=== PATIENT | male | born 1965 | race Caucasian/White ===

== ENCOUNTER 2017-12-22 17:51 | Observation (INO) | payer OTHER ==
[2017-12-22] MEDS ORDERED: Sodium Chloride 0.9% 1,000 ML IV STA (18:25)
--- NOTE | 2017-12-22 18:25 | ED PDOC ---
Syncope/Near Syncope/Dizziness Time Seen by Provider: 12/22/17 18:03 Chief Complaint (Nursing): Syncope Chief Complaint (Provider): Syncope History Per: Ream Cutter ([id number]) Additional Complaint(s): 52 yo male, no PMH, presents to ED for evaluation of a syncopal episode. Pt is from [place], here on a business trip until Jan 02. All information obtained from Pt and family via science interpreter [id number]. Pt and his family were going to dinner around 1730, upon sitting down at table Pt began to feel sweaty and passed out. Pt was caught by his , did not fall to floor, no head injury. Pt was unconscious for ~ 2 minutes and then regained consciousness upon laying down. Pt denies any chest pain or SOB. No abdominal pain, nausea or vomiting. Pt at this time appears to be pale; however, reports feeling well. Past Medical History Reviewed: Nursing Documentation, Vital Signs Vital Signs: Last Vital Signs Temp 98.1 F 12/22/17 17:59 Pulse 47 L 12/22/17 17:59 Resp 18 12/22/17 17:59 BP 142/76 12/22/17 17:59 Pulse Ox 100 12/22/17 17:59 - Medical History PMH: No Chronic Diseases - Surgical History Surgical History: No Surg Hx - Family History Family History: States: No Known Family Hx - Living Arrangements Living Arrangements: With Family - Social History Current smoker - smoking cessation education provided: No Alcohol: None Drugs: Denies - Home Medications Home Medications: Ambulatory Orders Medication Instructions Recorded Aspirin [Ecotrin] 81 mg PO DAILY 12/22/17 - Allergies Allergies/Adverse Reactions: Allergies Allergy/AdvReac Type Severity Reaction Status Date / Time No Known Allergies Allergy Verified 12/22/17 18:06 Review of Systems ROS Statement: Except As Marked, All Systems Reviewed And Found Negative Neurological: Positive for: Altered Mental Status Physical Exam - Reviewed Nursing Documentation Reviewed: Yes Vital Signs Reviewed: Yes - Physical Exam Appears: Positive for: Well, Non-toxic, No Acute Distress Head Exam: Positive for: ATRAUMATIC, NORMAL INSPECTION, NORMOCEPHALIC Skin: Positive for: Warm, Pallor Eye Exam: Positive for: EOMI, Normal appearance, PERRL ENT: Positive for: Normal ENT Inspection Neck: Positive for: Normal, Painless ROM Cardiovascular/Chest: Positive for: Regular Rate, Rhythm Respiratory: Positive for: CNT, Normal Breath Sounds Gastrointestinal/Abdominal: Positive for: Normal Exam, Soft Back: Positive for: Normal Inspection Extremity: Positive for: Normal ROM Neurologic/Psych: Positive for: Alert, Oriented - Laboratory Results Result Diagrams: 12/22/17 18:24 12/22/17 18:24 - ECG O2 Sat by Pulse Oximetry: 100 Medical Decision Making Medical Decision Making: Pt placed on cook 3 pastry: P: 42, BP: 132/72 upon initial exam by commercial lines underwriter Finger stick upon arrival: 128 EKG: SB at 49 bpm, no axis deviation or acute ST changes as read by ED MD IV access established and diagnostics ordered Hgb: 14.0 Hct: 41.6 ED MD, Dr. Connors, at bedside for eval as well. Pt remains calm and comfortable throughout stay, offers no complaints of CP or SOB Dr. Orlando covering medicine on-call. presented to see and evaluate Pt at bedside. Arrangements made for tele- admit Dr. Handley, cardio on-call, placed on consult. contacted by commercial lines underwriter and case discussed. P: 49 on re-eval, BP: 128/74 at 1999 Disposition - Clinical Impression Clinical Impression: Syncope, Bradycardia - Patient ED Disposition Is Patient to be Admitted: Yes - Disposition Disposition Time: 19:59 Condition: STABLE Forms: [facility] (Lao)
[2017-12-22 18:37] LABS: BASO % 0.6 % (0.0-2.0); EOS # 0.1 K/uL (0.0-0.7); EOS % 1.3 % (0.0-4.0); LYMPH # 2.9 K/uL (1.0-4.3); MEAN CELL VOLUME 97.6 fl (80.0-94.0); MEAN CORPUSCULAR HEMOGLOBIN 32.9 pg (27.0-31.0); MEAN CORPUSCULAR HGB CONC 33.7 g/dL (33.0-37.0); MEAN PLATELET VOLUME 9.3 fl (7.2-11.7); MONO # 0.4 K/uL (0.0-0.8); MONO % 5.6 % (0.0-10.0); NEUT % 53.5 % (50.0-75.0); NRBC % 0.1 % (0.0-0.0); RBC 4.26 Mil/uL (4.40-5.90); RED CELL DISTRIBUTION WIDTH 12.6 % (11.5-14.5); WHITE BLOOD COUNT 7.5 K/uL (4.8-10.8)
[2017-12-22 18:43] LABS: ALB/GLOB RATIO 1.3 (1.0-2.1); ALBUMIN 4.3 g/dL (3.5-5.0); CALCIUM 9.2 mg/dL (8.4-10.2); GFR NON-AFRICAN AMERICAN > 60; PARTIAL THROMBOPLASTIN TIME 33.6 Seconds (25.6-37.1); PROTHROMBIN TIME 11.3 Seconds (9.8-13.1)
[2017-12-22 19:17] LABS: ALT/SGPT 29 U/L (21-72); AST/SGOT 32 U/L (17-59); BLOOD UREA NITROGEN 18 mg/dl (9-20)
--- NOTE | 2017-12-22 20:49 | CP.PCM.HP ---
History of Present Illness - History of Present Illness History of Present Illness: CC: Syncope This is a 52 yo male with pmh of hypercholesterolemia, who presents to the ED today c/o a syncopal episode earlier today. The patient went to dinner at 1730, and when he sat down at the table the patient began feeling diaphoretic and lightheaded and syncopized in his chair. The patient was caught by his and did not fall or hit his head. The syncopal episode lasted for 2 minutes. There was no evidence of convulsions or post ictal phase to suggest a seizure. He denies any palpitations before or after the event. Of note the patient did have one syncopal episode recently in [place] and was worked up and found to have hypercholesterolemia but otherwise the workup there was negative. In the ED, the patient was noted to be in sinus bradycardia around [address] head was negative and EKG unremarkable other than sinus bradycardia. The patient is being admitted for further workup and monitoring due to syncope. PMH: Hypercholesterolemia PSH: None Social: Denies smoking, ETOH, or recreational drugs. Present on Admission - Present on Admission Any Indicators Present on Admission: No History of DVT/PE: No History of Uncontrolled Diabetes: No Review of Systems - Review of Systems Review of Systems: A 12 point review of systems was conducted and found to be negative other than in HPI. Past Patient History - Infectious Disease Hx of Infectious Diseases: None - Past Social History Smoking Status: Never Smoked Alcohol: None Drugs: Denies Home Situation {Lives}: With Family - PSYCHIATRIC Hx Substance Use: No - SURGICAL HISTORY Hx Surgeries: No - ANESTHESIA Hx Anesthesia: No Meds Allergies/Adverse Reactions: Allergies Allergy/AdvReac Type Severity Reaction Status Date / Time No Known Allergies Allergy Verified 12/22/17 18:06 Physical Exam - Additional Findings Additional findings: Physical exam: Constitutional- cooperative, awake, alert Head- NCAT, PERRL Eye- PERRL, EOMI ENT- normal exam, MMM. Neck- normal inspection, supple, no JVD Respiratory- CTAB, no wheezes rales rhonchi Cardiovascular- Bradycardia, regular rhythm, +S1, +S2 no MRG GI/Abdominal- normal bowel sounds, soft, no mass, no hsm Skin- warm, dry Extremities Exam- normal capillary refill, normal inspection Neurological Exam- alert, awake, oriented Psych- normal mood, normal affect Results - Vital Signs Recent Vital Signs: Last Vital Signs Temp 98.1 F 12/22/17 17:59 Pulse 47 L 12/22/17 17:59 Resp 18 12/22/17 17:59 BP 142/76 12/22/17 17:59 Pulse Ox 100 12/22/17 20:00 - Labs Result Diagrams: 12/22/17 18:24 12/22/17 18:24 Labs: Laboratory Results - last 24 hr 12/22/17 12/22/17 12/22/17 18:12 18:24 18:24 WBC 7.5 RBC 4.26 L Hgb 14.0 Hct 41.6 MCV 97.6 H MCH 32.9 H MCHC 33.7 RDW 12.6 Plt Count 109 L MPV 9.3 Neut % (Auto) 53.5 Lymph % (Auto) 39.0 [place] % (Auto) 5.6 Eos % (Auto) 1.3 Baso % (Auto) 0.6 Neut # (Auto) 4.0 Lymph # (Auto) 2.9 [place] # (Auto) 0.4 Eos # (Auto) 0.1 Baso # (Auto) 0.0 PT INR APTT Sodium 141 Potassium 3.8 Chloride 103 Carbon Dioxide 22 Anion Gap 20 BUN 18 Creatinine 0.7 L Est GFR ( Amer) > 60 Est GFR (Non-Af Amer) > 60 POC Glucose (mg/dL) 128 H Random Glucose 128 H Calcium 9.2 Total Bilirubin 2.0 H AST 32 ALT 29 Alkaline Phosphatase 57 Total Creatine Kinase 111 Troponin I < 0.0120 Total Protein 7.6 Albumin 4.3 Globulin 3.2 Albumin/Globulin Ratio 1.3 TSH 3rd Generation 12/22/17 12/22/17 18:24 18:37 WBC RBC Hgb Hct MCV MCH MCHC RDW Plt Count MPV Neut % (Auto) Lymph % (Auto) [place] % (Auto) Eos % (Auto) Baso % (Auto) Neut # (Auto) Lymph # (Auto) [place] # (Auto) Eos # (Auto) Baso # (Auto) PT 11.3 INR 1.0 APTT 33.6 Sodium Potassium Chloride Carbon Dioxide Anion Gap BUN Creatinine Est GFR ( Amer) Est GFR (Non-Af Amer) POC Glucose (mg/dL) Random Glucose Calcium Total Bilirubin AST ALT Alkaline Phosphatase Total Creatine Kinase Troponin I Total Protein Albumin Globulin Albumin/Globulin Ratio TSH 3rd Generation 2.83 Assessment & Plan - Assessment and Plan (Free Text) Plan: This is a 52 yo male with pmh of hypercholesterolemia, who presents to the ED today c/o a syncopal episode earlier today. The patient went to dinner at 1730, and when he sat down at the table the patient began feeling diaphoretic and lightheaded and syncopized in his chair. The patient was caught by his and did not fall or hit his head. The syncopal episode lasted for 2 minutes. There was no evidence of convulsions or post ictal phase to suggest a seizure. He denies any palpitations before or after the event. No cp or sob. In the ED, the patient was noted to be in sinus bradycardia around [address] head was negative and EKG unremarkable other than sinus bradycardia. The patient is being admitted for further workup and monitoring due to syncope. 1) Syncopal episode with bradycardia, vasovagal event vs arrhythmia - Telemetry/observation - Serial troponins - Cardiology consultation with Dr. Handley, called from ED. - Repeat EKG - Labs WNL - Check TSH, lipid profile 2) Hypercholesterolemia - Continue Aspirin 3) DVT prophylaxis - Lovenox
[2017-12-22 23:03] LABS: URINE BILIRUBIN NEGATIVE (NEGATIVE); URINE BLOOD NEGATIVE (NEGATIVE); URINE CLARITY CLEAR (Clear); URINE COLOR YELLOW (YELLOW); URINE GLUCOSE (UA) 150 mg/dL (Normal); URINE LEUKOCYTE ESTERASE NEG Leu/uL (Negative); URINE PROTEIN NEGATIVE (NEGATIVE); URINE UROBILINOGEN 0.2-1.0 mg/dL (0.2-1.0)
[2017-12-23 07:49] LABS: TROPONIN I 0.067 ng/mL (0.00-0.120)
--- NOTE | 2017-12-23 07:52 | RAD ---
Date of service: 12/22/2017 PROCEDURE: CHEST RADIOGRAPH, 1 VIEW HISTORY: med screening COMPARISON: None available. FINDINGS: LUNGS: Trace biapical fibrosis. No airspace disease identified bilaterally. PLEURA: No pneumothorax or pleural fluid seen. CARDIOVASCULAR: Normal. OSSEOUS STRUCTURES: No significant abnormalities. VISUALIZED UPPER ABDOMEN: Normal. OTHER FINDINGS: None. IMPRESSION: Trace biapical fibrosis. No acute cardiopulmonary findings appreciable.
[2017-12-23 07:54] LABS: T4 7.43 ug/dl (5.5-11.0)
[2017-12-23] MEDS ORDERED: Enoxaparin 40 mg Syringe SC SCH (09:00)
--- NOTE | 2017-12-23 09:51 | CT ---
Date of service: 12/22/2017 PROCEDURE: CT HEAD WITHOUT CONTRAST. HISTORY: syncope COMPARISON: None available. TECHNIQUE: Axial computed tomography images were obtained through the head/brain without intravenous contrast. Radiation dose: Total exam DLP = 778.16 mGy-cm. This CT exam was performed using one or more of the following dose reduction techniques: Automated exposure control, adjustment of the mA and/or kV according to patient size, and/or use of iterative reconstruction technique. FINDINGS: HEMORRHAGE: No intracranial hemorrhage. BRAIN: Normal crowder-white matter differentiation and density are appreciated throughout the cerebrum and cerebellum with the brainstem appearing unremarkable as well. There is no mass effect. There is no suspicious extra-axial fluid collection and the midline brain anatomy appears diffusely unremarkable. VENTRICLES: Unremarkable. No hydrocephalus. CALVARIUM: No destructive bony lesion or displaced fracture identified including through the skullbase. PARANASAL SINUSES: Right maxillary sinus disease identified. MASTOID AIR CELLS: Unremarkable as visualized. No inflammatory changes. OTHER FINDINGS: None. IMPRESSION: 1. No acute intracranial findings as discussed above. 2. Incidental right maxillary sinus disease noted. Concordant preliminary report from [facility], 12/22/2017.
[2017-12-23 14:23] VITALS: BP 125/77; PULSE 58; RESP 14; TEMP 98.9; O2SAT 97
--- NOTE | 2017-12-23 15:23 | CP.PCM.PN ---
<LauritaJody - Last Filed: 12/23/17 15:51> Subjective - Date & Time of Evaluation Date of Evaluation: 12/23/17 Time of Evaluation: 10:45 - Subjective Subjective: Patient seen and examined at bedside with Dr. Cook. He is resting comfortably and reports he feels okay. He states that he fainted yesterday and he reports that he thinks it is associated with his lack of sleep. He states that his resting heart rate is typically in the 50's. He reports that this episode has happened to him before in his country, [place]. He denies chest pain, shortness of breath, abdominal pain, nausea and vomiting. Objective - Vital Signs/Intake and Output Vital Signs (last 24 hours): Temp Pulse Resp BP Pulse Ox 98.9 F 58 L 14 125/77 97 12/23/17 14:07 12/23/17 14:07 12/23/17 14:07 12/23/17 14:07 12/23/17 14:07 - Medications Medications: Current Medications Acetaminophen (Tylenol 325mg Tab) 650 mg PO Q6 PRN PRN Reason: Pain, Mild (1-3) Aspirin (Ecotrin) 81 mg PO DAILY [facility] Last Admin: 12/23/17 10:04 Dose: 81 mg Enoxaparin Sodium (Lovenox) 40 mg SC DAILY [facility] PRN Reason: Protocol Last Admin: 12/23/17 10:05 Dose: 40 mg - Labs Labs: 12/22/17 18:24 12/22/17 18:24 PT 11.3 Seconds (9.8-13.1) 12/22/17 18:24 INR 1.0 (0.9-1.2) 12/22/17 18:24 APTT 33.6 Seconds (25.6-37.1) 12/22/17 18:24 - Constitutional Appears: Well, Non-toxic, No Acute Distress - Head Exam Head Exam: NORMAL INSPECTION - Eye Exam Eye Exam: Normal appearance - ENT Exam ENT Exam: Mucous Membranes Moist - Neck Exam Neck Exam: Normal Inspection. absent: Lymphadenopathy, Tenderness, Thyromegaly - Respiratory Exam Respiratory Exam: Clear to Ausculation Bilateral, NORMAL BREATHING PATTERN. absent: Chest Wall Tenderness, Decreased Breath Sounds, Prolonged Expiratory Phase, Rales, Rhonchi, Wheezes, Respiratory Distress, Stridor - Cardiovascular Exam Cardiovascular Exam: Bradycardia, REGULAR RHYTHM, +S1, +S2. absent: Clicks, Diastolic murmur, Gallop, JVD, RRR, Rubs, +S4, Murmur - GI/Abdominal Exam GI & Abdominal Exam: Soft, Normal Bowel Sounds. absent: Distended, Firm, Guarding, Rigid, Tenderness, Organomegaly, Pulsatile Mass, Rebound - Extremities Exam Extremities Exam: Normal Inspection - Neurological Exam Neurological Exam: Alert, Awake, Oriented x3 - Psychiatric Exam Psychiatric exam: Normal Affect, Normal Mood - Skin Skin Exam: Dry, Intact, Normal Color, Warm Assessment and Plan - Assessment and Plan (Free Text) Assessment: This is a 52 yo male with pmh of hypercholesterolemia presented to the ED today with a syncopal episode earlier today. The syncopal episode lasted for 2 minutes. There was no evidence of convulsions or post ictal phase to suggest a seizure. He denies any palpitations before or after the event. No cp or sob. ED, the patient was noted to be in sinus bradycardia around [address] head was negative and EKG unremarkable other than sinus bradycardia. The patient is being admitted for further workup and monitoring due to syncope. Plan: 1) Syncopal episode with bradycardia, vasovagal event vs arrhythmia - Troponin negative x2, pending third. - Cardiology consultation with Dr. Handley appreciated - Patient currently asymptomatic. 2) Hypercholesterolemia - Continue Aspirin 3) DVT prophylaxis - Continue Lovenox <Christo Cook - Last Filed: 01/08/18 16:35> Objective - Vital Signs/Intake and Output Vital Signs (last 24 hours): Temp Pulse Resp BP Pulse Ox 98.9 F 58 L 14 125/77 97 12/23/17 14:07 12/23/17 14:07 12/23/17 14:07 12/23/17 14:07 12/23/17 14:07 - Labs Labs: 12/22/17 18:24 12/22/17 18:24 PT 11.3 Seconds (9.8-13.1) 12/22/17 18:24 INR 1.0 (0.9-1.2) 12/22/17 18:24 APTT 33.6 Seconds (25.6-37.1) 12/22/17 18:24 Attending/Attestation - Attestation I have personally seen and examined this patient.: Yes I have fully participated in the care of the patient.: Yes I have reviewed all pertinent clinical information, including history, physical exam and plan: Yes Notes (Text): Syncopal episode with bradycardia, vasovagal event possible arrhythmia
--- NOTE | 2017-12-23 15:56 | CP.PCM.DIS ---
<Jody Shay - Last Filed: 12/23/17 15:54> Provider - Provider Date of Admission: 12/22/17 19:50 Attending physician: Bob Orlando DO Time Spent in preparation of Discharge (in minutes): 20 Hospital Course - Lab Results Lab Results: Most Recent Lab Values WBC 7.5 K/uL (4.8-10.8) 12/22/17 18: RBC 4.26 Mil/uL (4.40-5.90) L 12/22/17 18:24 Hgb 14.0 g/dL (12.0-18.0) 12/22/17 18:24 Hct 41.6 % (35.0-51.0) 12/22/17 18: MCV 97.6 fl (80.0-94.0) H 12/22/17 18:24 MCH 32.9 pg (27.0-31.0) H 12/22/17 18:24 MCHC 33.7 g/dL (33.0-37.0) 12/22/17 18: RDW 12.6 % (11.5-14.5) 12/22/17 18:24 Plt Count 109 K/uL (130-400) L 12/22/17 18:24 MPV 9.3 fl (7.2-11.7) 12/22/17 18:24 Neut % (Auto) 53.5 % (50.0-75.0) 12/22/17 18: Lymph % (Auto) 39.0 % (20.0-40.0) 12/22/17 18: [place] % (Auto) 5.6 % (0.0-10.0) 12/22/17 18:24 Eos % (Auto) 1.3 % (0.0-4.0) 12/22/17 18:24 Baso % (Auto) 0.6 % (0.0-2.0) 12/22/17 18: Neut # (Auto) 4.0 K/uL (1.8-7.0) 12/22/17 18:24 Lymph # (Auto) 2.9 K/uL (1.0-4.3) 12/22/17 18: [place] # (Auto) 0.4 K/uL (0.0-0.8) 12/22/17 18:24 Eos # (Auto) 0.1 K/uL (0.0-0.7) 12/22/17 18:24 Baso # (Auto) 0.0 K/uL (0.0-0.2) 12/22/17 18:24 PT 11.3 Seconds (9.8-13.1) 12/22/17 18:24 INR 1.0 (0.9-1.2) 12/22/17 18:24 APTT 33.6 Seconds (25.6-37.1) 12/22/17 18:24 Sodium 141 mmol/l (132-148) 12/22/17 18:24 Potassium 3.8 MMOL/L (3.6-5.0) 12/22/17 18:24 Chloride 103 mmol/L (98-107) 12/22/17 18:24 Carbon Dioxide 22 mmol/L (22-30) 12/22/17 18:24 Anion Gap 20 (10-20) 12/22/17 18:24 BUN 18 mg/dl (9-20) 12/22/17 18:24 Creatinine 0.7 mg/dl (0.8-1.5) L 12/22/17 18:24 Est GFR ( Amer) > 60 12/22/17 18:24 Est GFR (Non-Af Amer) > 60 12/22/17 18:24 POC Glucose (mg/dL) 128 mg/dL (65-110) H 12/22/17 18:12 Random Glucose 128 mg/dL (75-110) H 12/22/17 18:24 Calcium 9.2 mg/dL (8.4-10.2) 12/22/17 18:24 Total Bilirubin 2.0 mg/dl (0.2-1.3) H 12/22/17 18:24 AST 32 U/L (17-59) 12/22/17 18:24 ALT 29 U/L (21-72) 12/22/17 18:24 Alkaline Phosphatase 57 U/L (38-126) 12/22/17 18:24 Total Creatine Kinase 111 U/L (55-170) 12/22/17 18:24 Troponin I 0.0670 ng/mL (0.00-0.120) 12/23/17 07:14 Total Protein 7.6 G/DL (6.3-8.2) 12/22/17 18:24 Albumin 4.3 g/dL (3.5-5.0) 12/22/17 18:24 Globulin 3.2 gm/dL (2.2-3.9) 12/22/17 18:24 Albumin/Globulin Ratio 1.3 (1.0-2.1) 12/22/17 18:24 Triglycerides 46 mg/DL (0-149) 12/23/17 07:14 Cholesterol 156 mg/dL (0-199) 12/23/17 07:14 LDL Cholesterol Direct 92 mg/dL (0-129) 12/23/17 07:14 HDL Cholesterol 45 MG/DL (30-70) 12/23/17 07:14 Thyroxine (T4) 7.43 ug/dl (5.5-11.0) 12/23/17 07:14 TSH 3rd Generation 0.81 mIU/ML (0.46-4.68) 12/23/17 07:14 Urine Color Yellow (YELLOW) 12/22/17 22:32 Urine Clarity Clear (Clear) 12/22/17 22:32 Urine pH 6.0 (5.0-8.0) 12/22/17 22:32 Ur Specific [place] 1.012 (1.003-1.030) 12/22/17 22:32 Urine Protein Negative mg/dL (NEGATIVE) 12/22/17 22:32 Urine Glucose (UA) 150 mg/dL (Normal) 12/22/17 22:32 Urine Ketones Trace mg/dL (NEGATIVE) 12/22/17 22:32 Urine Blood Negative (NEGATIVE) 12/22/17 22:32 Urine Nitrate Negative (NEGATIVE) 12/22/17 22:32 Urine Bilirubin Negative (NEGATIVE) 12/22/17 22:32 Urine Urobilinogen 0.2-1.0 mg/dL (0.2-1.0) 12/22/17 22:32 Ur Leukocyte Esterase Neg [place]anna/uL (Negative) 12/22/17 22:32 Urine RBC (Auto) 2 /hpf (0-3) 12/22/17 22:32 Urine Microscopic WBC < 1 /hpf (0-5) 12/22/17 22:32 - Hospital Course Hospital Course: 52 yo male with pmh of hypercholesterolemia, who presented to the ED with a syncopal episode earlier today. The patient went to dinner and when he sat down the patient began feeling diaphoretic and lightheaded and syncopized in his chair. The patient did not fall or hit his head; episode lasted for 2 minutes. There was no evidence of convulsions or post ictal phase to suggest a seizure. He denies palpitations before or after the event. Patient reports he had 1 syncopal event happen to him in [place] but the workup was negative, as per patient. In the ED, the patient was noted to be in sinus bradycardia around [address] head was negative and EKG unremarkable other than sinus bradycardia. The patient is being admitted for further workup and monitoring due to syncope. Patient left AMA. Discharge Exam - Head Exam Head Exam: NORMAL INSPECTION - Eye Exam Eye Exam: Normal appearance - ENT Exam ENT Exam: Mucous Membranes Moist, Normal Oropharynx - Respiratory Exam Respiratory Exam: NORMAL BREATHING PATTERN. absent: Chest Wall Tenderness, Rales, Rhonchi, Wheezes, Respiratory Distress, Stridor - Cardiovascular Exam Cardiovascular Exam: Bradycardia, REGULAR RHYTHM, +S1. absent: Clicks, Diastolic murmur, Gallop, JVD, Rubs, +S4, Systolic Murmur - GI/Abdominal Exam GI & Abdominal Exam: Normal Bowel Sounds, Soft, Unremarkable. absent: Distended , Firm, Guarding, Mass, Organomegaly, Rebound, Rigid, Tenderness - Extremities Exam Extremities exam: normal inspection - Neurological Exam Neurological exam: Alert, Oriented x3 - Psychiatric Exam Psychiatric exam: Normal Affect, Normal Mood - Skin Skin Exam: Dry, Intact, Normal Color, Warm Discharge Plan - Follow Up Plan Condition: STABLE Disposition: AGAINST MEDICAL ADVICE <Christo Cook - Last Filed: 01/08/18 16:38> Provider - Provider Date of Admission: 12/22/17 19:50 Attending physician: Bob Orlando DO Time Spent in preparation of Discharge (in minutes): 32 Hospital Course - Lab Results Lab Results: Most Recent Lab Values WBC 7.5 K/uL (4.8-10.8) 12/22/17 18:24 RBC 4.26 Mil/uL (4.40-5.90) L 12/22/17 18:24 Hgb 14.0 g/dL (12.0-18.0) 12/22/17 18: Hct 41.6 % (35.0-51.0) 12/22/17 18: MCV 97.6 fl (80.0-94.0) H 12/22/17 18: MCH 32.9 pg (27.0-31.0) H 12/22/17 18: MCHC 33.7 g/dL (33.0-37.0) 12/22/17 18: RDW 12.6 % (11.5-14.5) 12/22/17 18: Plt Count 109 K/uL (130-400) L 12/22/17 18: MPV 9.3 fl (7.2-11.7) 12/22/17 18: Neut % (Auto) 53.5 % (50.0-75.0) 12/22/17: Lymph % (Auto) 39.0 % (20.0-40.0) 12/22/17: [place] % (Auto) 5.6 % (0.0-10.0) 12/22/17 18: Eos % (Auto) 1.3 % (0.0-4.0) 12/22/17: Baso % (Auto) 0.6 % (0.0-2.0) 12/22/17: Neut # (Auto) 4.0 K/uL (1.8-7.0) 12/22/17 18: Lymph # (Auto) 2.9 K/uL (1.0-4.3) 12/22/17 18: [place] # (Auto) 0.4 K/uL (0.0-0.8) 12/22/17 18: Eos # (Auto) 0.1 K/uL (0.0-0.7) 12/22/17 18: Baso # (Auto) 0.0 K/uL (0.0-0.2) 12/22/17 18: PT 11.3 Seconds (9.8-13.1) 12/22/17 18: INR 1.0 (0.9-1.2) 12/22/17 18: APTT 33.6 Seconds (25.6-37.1) 12/22/17 18:24 Sodium 141 mmol/l (132-148) 12/22/17 18:24 Potassium 3.8 MMOL/L (3.6-5.0) 12/22/17 18:24 Chloride 103 mmol/L (98-107) 12/22/17 18:24 Carbon Dioxide 22 mmol/L (22-30) 12/22/17 18:24 Anion Gap 20 (10-20) 12/22/17 18:24 BUN 18 mg/dl (9-20) 12/22/17 18:24 Creatinine 0.7 mg/dl (0.8-1.5) L 12/22/17 18:24 Est GFR ( Amer) > 60 12/22/17 18:24 Est GFR (Non-Af Amer) > 60 12/22/17 18:24 POC Glucose (mg/dL) 128 mg/dL (65-110) H 12/22/17 18:12 Random Glucose 128 mg/dL (75-110) H 12/22/17 18:24 Calcium 9.2 mg/dL (8.4-10.2) 12/22/17 18:24 Total Bilirubin 2.0 mg/dl (0.2-1.3) H 12/22/17 18:24 AST 32 U/L (17-59) 12/22/17 18:24 ALT 29 U/L (21-72) 12/22/17 18:24 Alkaline Phosphatase 57 U/L (38-126) 12/22/17 18:24 Total Creatine Kinase 111 U/L (55-170) 12/22/17 18:24 Troponin I 0.0670 ng/mL (0.00-0.120) 12/23/17 07:14 Total Protein 7.6 G/DL (6.3-8.2) 12/22/17 18:24 Albumin 4.3 g/dL (3.5-5.0) 12/22/17 18:24 Globulin 3.2 gm/dL (2.2-3.9) 12/22/17 18:24 Albumin/Globulin Ratio 1.3 (1.0-2.1) 12/22/17 18:24 Triglycerides 46 mg/DL (0-149) 12/23/17 07:14 Cholesterol 156 mg/dL (0-199) 12/23/17 07:14 LDL Cholesterol Direct 92 mg/dL (0-129) 12/23/17 07:14 HDL Cholesterol 45 MG/DL (30-70) 12/23/17 07:14 Thyroxine (T4) 7.43 ug/dl (5.5-11.0) 12/23/17 07:14 TSH 3rd Generation 0.81 mIU/ML (0.46-4.68) 12/23/17 07:14 Urine Color Yellow (YELLOW) 12/22/17 22:32 Urine Clarity Clear (Clear) 12/22/17 22:32 Urine pH 6.0 (5.0-8.0) 12/22/17 22:32 Ur Specific [place] 1.012 (1.003-1.030) 12/22/17 22:32 Urine Protein Negative mg/dL (NEGATIVE) 12/22/17 22:32 Urine Glucose (UA) 150 mg/dL (Normal) 12/22/17 22:32 Urine Ketones Trace mg/dL (NEGATIVE) 12/22/17 22:32 Urine Blood Negative (NEGATIVE) 12/22/17 22:32 Urine Nitrate Negative (NEGATIVE) 12/22/17 22:32 Urine Bilirubin Negative (NEGATIVE) 12/22/17 22:32 Urine Urobilinogen 0.2-1.0 mg/dL (0.2-1.0) 12/22/17 22:32 Ur Leukocyte Esterase Neg Alanna/uL (Negative) 12/22/17 22:32 Urine RBC (Auto) 2 /hpf (0-3) 12/22/17 22:32 Urine Microscopic WBC < 1 /hpf (0-5) 12/22/17 22:32 - Hospital Course Hospital Course: patient left AMA The patient "was"being admitted for further workup and monitoring due to syncope. Vasovagal / symptomatic bradycardia Patient left AMA.
--- NOTE | 2017-12-23 17:21 | CARD ---
APPROVED REPORT Date of service: 12/23/2017 EXAM: Two-dimensional and M-mode echocardiogram with Doppler and color Doppler. Other Information Quality : GoodRhythm : NSR INDICATION Abnormal EKG/Arrhythmia Syncope 2D DIMENSIONS IVSd0.66 (0.7-1.1cm)LVDd5.04 (3.9-5.9cm) LVOT Diameter1.86 (1.8-2.4cm)PWd0.87 (0.7-1.1cm) IVSs1.18 (0.8-1.2cm)LVDs3.20 (2.5-4.0cm) FS (%) 36.6 %PWs1.13 (0.8-1.2cm) M-Mode DIMENSIONS Left Atrium (MM)3.18 (2.5-4.0cm)IVSd1.17 (0.7-1.1cm) Aortic Root3.25 (2.2-3.7cm)LVDd4.59 (4.0-5.6cm) Aortic Cusp Exc.1.94 (1.5-2.0cm)PWd1.08 (0.7-1.1cm) IVSs1.67 cmFS (%) 41 % LVDs2.72 (2.0-3.8cm)PWs1.19 cm Aortic Valve AoV Peak Rjecjfor217.5cm/sAoV VTI27.3cmAO Peak GR.5mmHg LVOT Peak Ekqinwyg61.1cm/sLVOT VTI19.09cmAO Mean GR.3mmHg CATHY (VMAX)1.87ov4XKK (VTI)1.13cm2 Mitral Valve MV E Geuhtaox09.6cm/sMV DECEL SNGR576irGI A Segjlpjw55.5cm/s MV YFM33ehV/A ratio1.3MVA (PHT)3.30cm2 TDI Lateral E' Peak V14.10cm/sMedial E' Peak V11.33cm/sE/Lateral E'5.0 E/Medial E'6.2 Pulmonary Valve PV Peak Piqzdrwo32.4cm/s Tricuspid Valve TR Peak Sufqbxol373nc/sRAP EGDJOAIY19tnWaXD Peak Gr.25mmHg [id number] LEFT VENTRICLE The left ventricle is normal size. There is borderline concentric left ventricular hypertrophy. The left ventricular function is normal. The left ventricular ejection fraction is within the normal range. The Ejection Fraction is 60-65%. There is normal LV segmental wall motion. Transmitral Doppler flow pattern is Grade II-pseudonormal filling dynamics. RIGHT VENTRICLE The right ventricle is normal size. There is normal right ventricular wall thickness. The right ventricular systolic function is normal. ATRIA The left atrium is borderline dilated. The right atrium size is normal. AORTIC VALVE The aortic valve is normal in structure. No aortic regurgitation is present. There is no aortic valvular stenosis. MITRAL VALVE The mitral valve is normal in structure. There is no mitral valve stenosis. Mitral regurgitation is trace. TRICUSPID VALVE The tricuspid valve is normal in structure. There is no tricuspid valve regurgitation noted. PULMONIC VALVE The pulmonary valve is normal in structure. There is no pulmonic valvular regurgitation. GREAT VESSELS The aortic root is normal in size. The IVC is normal in size and collapses >50% with inspiration. PERICARDIAL EFFUSION The pericardium appears normal. <Conclusion> The left ventricular function is normal. The left ventricular ejection fraction is within the normal range. The Ejection Fraction is 60-65%. Transmitral Doppler flow pattern is Grade II-pseudonormal filling dynamics.
--- NOTE | 2017-12-23 17:35 | CARD ---
APPROVED REPORT Date of service: 12/23/2017 EKG Measurement Heart [id number] TN [id number] <Conclusion> Sinus bradycardia Nonspecific T wave abnormality Abnormal ECG
--- NOTE | 2017-12-23 17:47 | CARD ---
APPROVED REPORT Date of service: 12/22/2017 EKG Measurement Heart [id number] SC [id number] <Conclusion> Sinus bradycardia Nonspecific T wave abnormality Abnormal ECG
== END 2017-12-23 14:07 | disposition left against medical advice (07) ==
LOC: H.ER 17:51 → INTOOBSV 19:50 → H.ERHOLD 19:50
PROVIDERS: ADMIT Internal Medicine; ATTEND Internal Medicine
DX: R55 Syncope and collapse (principal); E78.00 Pure hypercholesterolemia, unspecified; Z79.82 Long term (current) use of aspirin; R00.1 Bradycardia, unspecified; R42 Dizziness and giddiness
CPT/HCPCS: 70450; 71045; 80053; 80061; 81003; 82550; 82948; 84436; 84443; 84484; 85025; 85610; 85730; 93005; 93306; 96360; 96361; 96372; 99285; G0378; J1650; J7030